=== PATIENT | female | born 1960 | race African-American/Black ===

== ENCOUNTER 2018-09-25 00:47 | Observation (INO) ==
[2018-09-25 01:19] LABS: Basophils % 0.5 % (0.0-0.8); Eosinophils # 0.2 10*3/uL (0.0-0.87); Eosinophils % 2.8 % (0.00-10.9); Hematocrit 44.6 VOL% (35.7-47.0); Hemoglobin 14.9 GM/DL (12.0-16.0); Immature Granulocytes % 0.2 %; Immature Granulocytes Absolute 0.02 #; Lymphocytes # 4.1 10*3/uL (1.4-4.0); Lymphocytes % 50.5 % (21.3-54.2); Mean Corpuscular HGB Conc 33.4 GM/DL (32-36); Mean Corpuscular Volume 89.6 FL (87-102); Mean Platelet Volume 10.1 FL (9.6-12.0); Monocytes % 9.2 % (1.7-12.7); Neutrophils % 36.8 % (38.7-73.9); Platelet Count 258 T/CUMM (130-400); Red Blood Count 4.98 MC/CUMM (3.8-5.5); Red Cell Distribution Width 12.5 % (9.3-17.3); White Blood Count 8.2 T/CUMM (4-12)
[2018-09-25 01:31] LABS: INR 0.9; PT Patient Result 10.2 SECS; Partial Thromboplastin Time 24.6 SECS (0-40)
[2018-09-25] MEDS ORDERED: hydrALAZINE 20 MG/1 ML VIAL IV STA (01:38)
[2018-09-25 01:40] LABS: Alanine Aminotransferase 35 U/L (13-56); Albumin 4.2 G/DL (3.4-5.0); Alkaline Phosphatase 79 U/L (45-117); Aspartate Amino Transferase 21 U/L (0-37); Bilirubin,Total < 0.39 MG/DL (0.2-1.0); Blood Urea Nitrogen 22 MG/DL (7-18); Calcium 9.5 MG/DL (8.5-10.1); Glucose 117 MG/DL (74-106); Osmolality,Calculated 282.4 MOS/KG (273-304); Total Protein 7.8 G/DL (6.4-8.3)
[2018-09-25] MEDS ORDERED: LABETALOL 100 MG/20 ML VIAL IV PRN (03:04)
[2018-09-25 03:19] LABS: Apearance,Urine CLEAR (Clear); Bacteria,Urine Occasional /HPF (Few); Bilirubin,Urine Negative (Negative); Blood, Urine Negative (Negative); Glucose,Urine (UA) Negative (Negative); Hyaline Casts,Urine 1 /LPF (0-3); Ketones,Urine Negative (Negative); Nitrite,Urine Negative (Negative); Protein,Urine Negative; RBC,Urine <1 /HPF (0-4); Squamous Epithelial Cell,Urine Occasional /HPF (0-10); Urine Color Colorless (Yellow); Urine Specific Gravity 1.003 (1.001-1.035); Urine Urobilinogen < 2.0 EU/DL (0.2-1.0); WBC,Urine 1 /HPF (0-6)
[2018-09-25 03:28] LABS: Barbiturates Screen,Urine Negative (Negative); Benzodiazepines Screen,Urine Negative (Negative); Cannabinoid Screen,Urine Negative (Negative); Opiate Screen,Urine Negative (Negative); Phencyclidine Screen,Urine Negative (Negative)
[2018-09-25 03:47] LABS: Risk Ratio 4.2; VLDL CHOLESTEROL 49.8 MG/DL
[2018-09-25 04:25] LABS: Eosinophils 1 % (0-10); Lymphocytes 50 % (20-55); Platelet Estimate Normal; Segmented Neutrophils 34 % (50-85); Total Cells Counted 100
[2018-09-25 04:26] LABS: Hypochromasia 2+
[2018-09-25] MEDS ORDERED: ASPIRIN 300 MG SUPP RECTAL SCH (09:00)
[2018-09-25] MEDS: ENOXAPARIN 40 MG/0.4 ML SYRINGE SUBCUT SCH (10:35)
[2018-09-25] MEDS ORDERED: SIMVASTATIN 20 MG TABLET PO SCH (21:00)
[2018-09-25] MEDS ORDERED: lamoTRIgine 100 MG TABLET PO SCH (21:00)
[2018-09-25] MEDS ORDERED: OLANZapine 5 MG TABLET PO SCH (21:00)
[2018-09-25] MEDS ORDERED: TRIHEXYPHENIDYL 2 MG PO SCH (21:00)
[2018-09-25] MEDS ORDERED: HydrOXYzine PAMOATE 25 MG CAPSULE PO SCH (21:00)
[2018-09-25] MEDS ORDERED: LATANOPROST 0.005% OPH SOLN 2.5 ML BOTTLE BOTH EYES SCH (21:00)
[2018-09-25] MEDS: NITROFURANTOIN MACRO/MONO 100 MG CAPSULE PO SCH (21:26)
[2018-09-26] MEDS ORDERED: LEVOTHYROXINE 25 MCG TABLET PO SCH (06:30)
[2018-09-26 06:56] LABS: Calcium 9.5 MG/DL (8.5-10.1); Osmolality,Calculated 279.5 MOS/KG (273-304)
[2018-09-26] MEDS: ENOXAPARIN 40 MG/0.4 ML SYRINGE SUBCUT SCH (08:59)
[2018-09-26] MEDS ORDERED: ASPIRIN EC 325 MG TABLET PO SCH (09:00)
[2018-09-26] MEDS: NITROFURANTOIN MACRO/MONO 100 MG CAPSULE PO SCH (09:00)
[2018-09-26] MEDS ORDERED: LISINOPRIL 20 MG TABLET PO SCH (09:00)
[2018-09-26 12:17] VITALS: BP 118/72
[2018-10-02] MEDS ORDERED: ERGOCALCIFEROL 50,000 UNIT CAPSULE PO SCH (09:00)
== END 2018-09-26 14:23 | disposition home or self-care (01) ==
LOC: N.EDINP 00:47 → N.ED 00:47 → SUPCPDRO 03:04 → N.4E 03:38
PROVIDERS: ADMIT Internal Medicine Nephrology; ATTEND Internal Medicine Nephrology